=== PATIENT | male | born 1970 | race Caucasian/White ===

== ENCOUNTER → 2016-11-29 | Outpatient (CLI) | payer BC ==
[~2016-11-29] MED LIST: ASPCH81 PO; LISI20TA3 PO; MULT-506 PO; OMEG10007 PO
--- NOTE | 2016-11-29 09:34 | DIAGNOSTIC IMAGING REPORT ---
ABDOMEN COMPLETE (US) CLINICAL HISTORY: Right upper quadrant and left lower quadrant pain. COMPARISON STUDY: No previous studies for comparison. FINDINGS: Hepatic echogenicity is increased. The liver is heterogeneous. Hypoechoic foci within the right hepatic lobe may reflect areas of fatty sparing. There is no biliary ductal dilatation. No gallstones are identified. The pancreas is largely obscured by overlying bowel gas. The size of the spleen is normal. The right kidney measures 11.4 cm and the left measures 11.7 cm. There is no hydronephrosis. Visualized portions of the aorta are normal caliber. Visualized portions of the IVC are patent. IMPRESSION: 1. Fatty infiltration of the liver. Heterogeneous liver with hypoechoic foci within the right hepatic lobe which favor fatty sparing. However, MRI of the liver is recommended to exclude the less likely possibility of hepatic lesions. 2. No gallstones or biliary ductal dilatation. 3. Largely obscured pancreas due to overlying bowel gas. 4. No hydronephrosis. Electronically signed by: Rodney King M.D. 11/29/2016 9:33 AM Dictated Date/Time: 11/29/2016 9:29 AM
== END | disposition home or self-care (01) ==
LOC: C.ULTR 08:40
PROVIDERS: ATTEND Family Medicine
DX: R10.11 Right upper quadrant pain (principal); R10.32 Left lower quadrant pain; R93.2 Abnormal findings on diagnostic imaging of liver and biliary tract

== ENCOUNTER → 2016-12-12 | Outpatient (CLI) | payer BC ==
[~2016-12-12] MED LIST changes: +GADOXETATE DISODIUM IV PRN
--- NOTE | 2016-12-12 08:56 | DIAGNOSTIC IMAGING REPORT ---
LIVER COMBO CLINICAL HISTORY: 46 years-old Male presenting with ABD PAIN for 3 to 4 weeks, FATTY INFILTRATION OF LIVER WITH HYPOECHIOC AREAS of a recent ultrasound, MR for further characterization. TECHNIQUE: Multisequence, multiplanar MR imaging of the abdomen was performed before and after the administration of intravenous contrast. IV contrast: 10 mL of Eovist. COMPARISON: Ultrasound from 11/29/2016. FINDINGS: Localizer images: Unremarkable. Lung bases: Lung bases clear. Normal heart size. Trace right pleural effusion. No pericardial effusion. Liver: Normal morphology. Hepatic fat fraction measures 18.7%, indicative of moderate steatosis. Heterogeneity of fat deposition best demonstrated on fat only images. No liver lesion. Conventional hepatic arterial anatomy. Patent portal and hepatic veins. Biliary: No intrahepatic or extrahepatic biliary ductal dilatation. Normal gallbladder. Pancreas: Normal. Spleen: Normal. Adrenal glands: Normal. Kidneys: Normal. No hydronephrosis. Bowel: Normal. No bowel obstruction. Peritoneal cavity: No free fluid or intraperitoneal gas. Lymph nodes: No enlarged lymph nodes in the abdomen or pelvis. Vasculature: Aorta and IVC patent and normal in caliber. Abdominal wall: Normal. Musculoskeletal: Benign hemangioma noted in the L2 vertebral body. IMPRESSION: 1. Moderate hepatic steatosis with heterogeneity of fat deposition correlating to the findings on ultrasound. No focal liver lesion. Electronically signed by: Lui Ferguson M.D. 12/12/2016 8:55 AM Dictated Date/Time: 12/12/2016 8:43 AM
== END | disposition home or self-care (01) ==
LOC: C.MRI 07:44
PROVIDERS: ATTEND Family Medicine
DX: R10.9 Unspecified abdominal pain (principal); K76.0 Fatty (change of) liver, not elsewhere classified